=== PATIENT | male | born 1990 | race African-American/Black ===

== ENCOUNTER 2019-04-22 20:53 | Emergency (ER) | payer OTHER ==
[~2019-04-22] VITALS: Ht 177.8 cm; Wt 88.5 kg
[2019-04-22 21:16] LABS: URINE BLOOD 2+ (Negative); URINE CLARITY SL CLOUDY; URINE COLOR YELLOW; URINE GLUCOSE-RANDOM* NEGATIVE (Negative); URINE KETONES TRACE (Negative); URINE LEUKOCYTES NEGATIVE (Negative); URINE NITRITE NEGATIVE (Negative); URINE PROTEIN (DIPSTICK) 2+ (Negative); URINE SPECIFIC GRAVITY >= 1.030 (1.005-1.035); URINE UROBILINOGEN 0.2 E.U./dl (0.2-1.0)
[2019-04-22 21:19] LABS: ICTOTEST (BILI CONFIRMATORY) Negative (Negative); URINE BILIRUBIN NEGATIVE (Negative)
[2019-04-22 21:30] LABS: HYALINE CASTS >10 Many /LPF (None Seen)
[2019-04-22 21:32] LABS: ABSOLUTE NEUTROPHILS 4.5 thou/uL (1.4-8.2); BASOPHILS 0.5 % (0.0-2.0); EOSINOPHILS 0.1 % (0.0-3.0); HEMATOCRIT 48.9 % (42.0-52.0); HEMOGLOBIN 17.1 gm/dL (14.0-18.0); MCH 30.9 pg (26.0-34.0); MCV 88.2 fL (80.0-100.0); PLATELET COUNT 259 thou/uL (150-400); POLYS 69.4 % (36.0-66.0); RBC 5.54 mil/uL (4.50-6.00); RDW 12.8 % (10.5-14.5); WBC 6.4 thou/uL (4.0-11.0)
[2019-04-22 21:36] LABS: URIC ACID CRYSTALS >10 Many /LPF (None Seen)
[2019-04-22 21:37] LABS: BACTERIA None Seen /HPF (None Seen); SQUAMOUS 0-3 Few /LPF (0-3); URINE RBC 3-10 Few /HPF (0-2); URINE WBC 0-5 Rare /HPF (0-5)
[2019-04-22 21:38] LABS: MUCUS >6 Heavy strn/LPF (None Seen)
[2019-04-22 21:42] LABS: CALCIUM 11.3 mg/dL (8.5-10.1); CREATININE 2.3 mg/dL (0.7-1.3); POTASSIUM 4.7 mmol/L (3.5-5.1)
[2019-04-22 21:58] LABS: ALBUMIN 5.2 g/dL (3.4-5.0); TOTAL BILIRUBIN 0.8 mg/dL (<0.1-1.0); TOTAL PROTEIN 9.7 g/dL (6.4-8.2)
[2019-04-22 22:28] LABS: CALCIUM 11.1 mg/dL (8.5-10.1); CREATININE 2.3 mg/dL (0.7-1.3); POTASSIUM 4.8 mmol/L (3.5-5.1)
[2019-04-23 00:12] LABS: CREATININE 1.7 mg/dL (0.7-1.3)
[2019-04-23 00:14] LABS: CALCIUM 8.5 mg/dL (8.5-10.1); POTASSIUM 3.7 mmol/L (3.5-5.1)
[2019-04-23 00:55] VITALS: BP 129/74
== END 2019-04-23 00:55 | disposition home or self-care (01) ==
LOC: ER 20:53
PROVIDERS: Emergency Medicine; Physician Assistant
DX: N17.9 Acute kidney failure, unspecified (principal); M62.82 Rhabdomyolysis; X30.XXXA Exposure to excessive natural heat, initial encounter; Y93.63 Activity, rugby; Y92.89 Other specified places as the place of occurrence of the external cause; Y99.8 Other external cause status